=== PATIENT | female | born 1935 | race Caucasian/White ===

== ENCOUNTER → 2018-08-21 | Outpatient (CLI) | payer MEDICARE ==
[~2018-08-21] MED LIST: CALC1TAB76 PO; CELE200C PO; MAGN400C PO; MULT-717 PO
== END | disposition home or self-care (01) ==
LOC: CFH 12:20
PROVIDERS: ATTEND Family Medicine
DX: R92.1 Mammographic calcification found on diagnostic imaging of breast (principal)
CPT/HCPCS: 76642; 77066; G0279

== ENCOUNTER 2019-05-10 09:13 | Outpatient (CLI) | payer MEDICARE | END 2019-05-10 23:59 | disposition home or self-care (01) | LOC: CFH 09:13 | PROVIDERS: ATTEND Family Medicine | DX: M81.0 Age-related osteoporosis without current pathological fracture (principal); Z13.820 Encounter for screening for osteoporosis; M85.80 Other specified disorders of bone density and structure, unspecified site | CPT/HCPCS: 77080 ==

== ENCOUNTER 2019-09-16 09:49 | Emergency (ER) | payer MEDICARE ==
[~2019-09-16] VITALS: Ht 162.6 cm; Wt 63.4 kg
--- NOTE | 2019-09-16 10:01 | NUR ---
Present with palpitation/sob x 2 days. Newly diagnosed with afib- started on Metoprolol by Dr. Sawyer [address]r [address], 131/86 ecg obtained in triage
[2019-09-16] MEDS ORDERED: METO-282 PO (10:03)
--- NOTE | 2019-09-16 10:22 | NUR ---
Patient to room 31, attached to monitors, reports hx of heart palpitations worsening since yesterday and ARANA. O2 96% on RA. Reports edema to BLE non-pitting. Call light within reach, provider at bedside
[2019-09-16] MEDS ORDERED: ESTR0.5T PO (10:28)
[2019-09-16] MEDS ORDERED: NORT10CA PO (10:28)
[2019-09-16 10:43] LABS: BASOPHILS # (AUTO) 0.03 x10^3/uL (0-0.1); BASOPHILS % (AUTO) 0 % (0-1); EOSINOPHILS # (AUTO) 0.14 x10^3/uL (0-0.4); EOSINOPHILS % (AUTO) 2 % (1-7); LYMPHOCYTES # (AUTO) 1.57 x10^3/uL (1-3.4); LYMPHOCYTES % (AUTO) 22 % (22-44); MD NO; MEAN CORPUSCULAR HEMOGLOBIN 27.8 pg (27.0-34.8); MEAN CORPUSCULAR HGB CONC 32.3 g/dL (32.4-35.8); MEAN CORPUSCULAR VOLUME 86.2 fL (80-100); MEAN PLATELET VOLUME 7.7 fL (7.4-10.4); MONOCYTES # (AUTO) 0.57 x10^3/uL (0.2-0.8); MONOCYTES % (AUTO) 8 % (2-9); NEUTROPHILS # (AUTO) 4.76 x10^3/uL (1.8-6.8); NEUTROPHILS % (AUTO) 67 % (42-75); PLATELET COUNT 269 x10^3/uL (130-400); RED BLOOD COUNT 4.54 x10^6/uL (3.82-5.3); RED CELL DISTRIBUTION WIDTH 14.2 % (9.6-15.2)
--- NOTE | 2019-09-16 10:49 | NUR ---
Labs drawn, Portable CXR completed, and repeat EKG done. Provider aware. Patient resting on gurney NAD noted.
[2019-09-16 10:55] LABS: ALANINE AMINOTRANSFERASE 16 U/L (12-78); ALBUMIN 3.4 g/dL (3.4-5.0); ANION GAP 6 mmol/L (5-15); CALCIUM 9.4 mg/dL (8.5-10.1); CHLORIDE 108 mmol/L (98-107); CREATININE 0.77 mg/dL (0.55-1.02)
[2019-09-16 10:59] LABS: ALKALINE PHOSPHATASE 72 U/L (45-117); BILIRUBIN,TOTAL 0.5 mg/dL (0.2-1.0); TOTAL PROTEIN 6.9 g/dL (6.4-8.2); TROPONIN I < 0.015 ng/mL (0.000-0.045)
[2019-09-16 11:39] VITALS: BP 161/80
--- NOTE | 2019-09-16 11:39 | NUR ---
Ambulated with slow steady gait. Stand by assist and used a cane. Denies chest discomfort.
--- NOTE | 2019-09-16 12:23 | NUR ---
POC is to dischagre home and follow up with placer miner. Unhooked patient from monitors. Provider spoke with patient. pending discharge instructions
== END 2019-09-16 12:38 | disposition home or self-care (01) ==
LOC: ED 10:58
DX: R00.2 Palpitations (principal); R06.02 Shortness of breath; M79.89 Other specified soft tissue disorders; R94.31 Abnormal electrocardiogram [ECG] [EKG]
CPT/HCPCS: 36415; 71045; 80053; 83880; 84484; 85025; 93005; 99285

== ENCOUNTER 2019-10-18 14:03 | Outpatient (CLI) | payer MEDICARE ==
[~2019-10-18 14:03] MED LIST changes: +ESTR0.5T PO; +METO-282 PO; +NORT10CA PO
== END 2019-10-18 23:59 | disposition home or self-care (01) ==
LOC: CFH 14:03
PROVIDERS: ATTEND Family Medicine
DX: M79.605 Pain in left leg (principal); M25.562 Pain in left knee; M71.22 Synovial cyst of popliteal space [Baker], left knee

== ENCOUNTER → 2019-10-29 | Outpatient (CLI) | payer MEDICARE | END | disposition home or self-care (01) | LOC: RAD 12:11 | PROVIDERS: ATTEND Family Medicine | DX: Z01.818 Encounter for other preprocedural examination (principal); Z01.810 Encounter for preprocedural cardiovascular examination; I44.4 Left anterior fascicular block; I45.10 Unspecified right bundle-branch block | CPT/HCPCS: 71046; 93005 ==

== ENCOUNTER → 2019-11-03 | Outpatient (CLI) | payer MEDICARE | END | disposition home or self-care (01) | LOC: CVU 12:38 | PROVIDERS: ATTEND Family Medicine | DX: I83.91 Asymptomatic varicose veins of right lower extremity (principal); I73.9 Peripheral vascular disease, unspecified | CPT/HCPCS: 93922; 93970 ==

== ENCOUNTER → 2019-11-17 | Outpatient (CLI) | payer MEDICARE ==
[~2019-11-17] MED LIST changes: +ACET-1600 PO; +DIPH25CA61 PO; +PANT500T PO; +TRAM50TA2 PO
[2019-11-17 14:19] LABS: BASOPHILS # (AUTO) 0.04 x10^3/uL (0-0.1); BASOPHILS % (AUTO) 1 % (0-1); EOSINOPHILS # (AUTO) 0.12 x10^3/uL (0-0.4); EOSINOPHILS % (AUTO) 2 % (1-7); LYMPHOCYTES # (AUTO) 1.56 x10^3/uL (1-3.4); LYMPHOCYTES % (AUTO) 28 % (22-44); MD NO; MEAN CORPUSCULAR HEMOGLOBIN 27.7 pg (27.0-34.8); MEAN CORPUSCULAR HGB CONC 32.7 g/dL (32.4-35.8); MEAN CORPUSCULAR VOLUME 84.8 fL (80-100); MEAN PLATELET VOLUME 8.1 fL (7.4-10.4); MONOCYTES # (AUTO) 0.47 x10^3/uL (0.2-0.8); MONOCYTES % (AUTO) 8 % (2-9); NEUTROPHILS # (AUTO) 3.49 x10^3/uL (1.8-6.8); NEUTROPHILS % (AUTO) 61 % (42-75); PLATELET COUNT 275 x10^3/uL (130-400); RED BLOOD COUNT 4.45 x10^6/uL (3.82-5.3); RED CELL DISTRIBUTION WIDTH 14.7 % (9.6-15.2)
[2019-11-17 14:26] LABS: ANION GAP 5 mmol/L (5-15); CALCIUM 9.4 mg/dL (8.5-10.1); CHLORIDE 111 mmol/L (98-107); CREATININE 0.86 mg/dL (0.55-1.02); INTERNATIONAL NORMALIZED RATIO 0.98 (0.93-1.1); PROTHROMBIN TIME 10.4 Seconds (9.6-11.5)
== END | disposition home or self-care (01) ==
LOC: STAR 13:13
PROVIDERS: ATTEND Orthopaedic Surgery
DX: Z01.818 Encounter for other preprocedural examination (principal); M17.12 Unilateral primary osteoarthritis, left knee
CPT/HCPCS: 36415; 80048; 83036; 85025; 85610; 85730; 87081

== ENCOUNTER 2019-12-01 07:54 | Observation (INO) | payer MEDICARE ==
[~2019-12-01] VITALS: Ht 165.1 cm; Wt 67.0 kg
[~2019-12-01 07:54] MED LIST changes: +ACETAMINOPHEN 650 MG/20.3 ML UDC PO PRN; +BISACODYL 10 MG SUPP PR PRN; +DIPHENHYDRAMINE 50 MG CAPSULE PO PRN; +EPINEPHRINE 1 MG/ML, 1ML ONE; +HYDROcodone/APAP 5/325 TABLET PO PRN; +HYDROmorphone 1 MG/ML, 1ML INJ IV PRN; +KETOROLAC 60 MG/2 ML ONE; +MAGNESIUM HYDROXIDE 8%, 30ML UDC PO PRN; +NORTRIPTYLINE 10 MG CAPSULE PO PRN; +ONDANSETRON 2MG/ML, 2ML IV PRN; +ONDANSETRON 4 MG TABLET PO PRN; +ROPIvacaine/PF 0.5%, 20 ML ONE; +ROPIvacaine/PF 0.5%, 30 ML ONE; +SENNA/DOCUSATE TABLET PO PRN; +SODIUM CHLORIDE 0.9% 50 ML ONE; +TRANEXAMIC ACID 100 MG/ML, 10ML ONE; +VANCOMYCIN 1,000 MG ONE; +ZOLPIDEM 5MG TABLET PO PRN
[2019-12-01] MEDS ORDERED: LACTATED RINGERS 1,000 ML IV SCH (08:27)
[2019-12-01 08:28] VITALS: BP 171/93
[2019-12-01] MEDS ORDERED: GABAPENTIN 300 MG CAPSULE PO ONE (08:30)
[2019-12-01] MEDS ORDERED: ACETAMINOPHEN 500 MG TABLET PO ONE (08:30)
[2019-12-01] MEDS ORDERED: CHLORHEXIDINE 15 ML UDC MM ONE (08:30)
[2019-12-01] MEDS ORDERED: FENTANYL PF 250 MCG/5ML ONE (08:49)
[2019-12-01] MEDS ORDERED: PROPOFOL 10 MG/ML, 20ML ONE ×2 (08:50→08:57)
[2019-12-01] MEDS ORDERED: CEFAZOLIN 1,000 MG ONE ×2 (08:51)
[2019-12-01] MEDS ORDERED: ROCURONIUM 10MG/ML,5ML ONE (08:57)
[2019-12-01] MEDS ORDERED: ONDANSETRON 2MG/ML, 2ML IVPush PRN (09:00)
[2019-12-01] MEDS ORDERED: hydrALAzine 20 MG/ML, 1ML IV PRN (09:00)
[2019-12-01] MEDS ORDERED: OXYcodone 5 MG/5 ML ORAL.SOL UDC PO PRN (09:00)
[2019-12-01] MEDS ORDERED: LABETALOL 5MG/ML, 20ML IV PRN (09:00)
[2019-12-01] MEDS ORDERED: MEPERIDINE/PF 25MG/0.5ML IVPush PRN (09:00)
[2019-12-01] MEDS ORDERED: NEOSTIGMINE 1 MG/ML, 10ML ONE (09:52)
[2019-12-01] MEDS ORDERED: GLYCOPYRROLATE 0.2MG/1ML, 5ML ONE (09:52)
[2019-12-01] MEDS ORDERED: ONDANSETRON 2MG/ML, 2ML ONE (09:52)
[2019-12-01] MEDS ORDERED: PROPOFOL 50 ML ONE (10:02)
[2019-12-01] MEDS ORDERED: OXYcodone 5 MG/5 ML ORAL.SOL UDC ONE (11:14)
[2019-12-01] MEDS ORDERED: FENTANYL PF 100 MCG/2ML ONE ×2 (11:14→11:55)
[2019-12-01] MEDS: FENTANYL PF 100 MCG/2ML IV PRN ×3 (11:15→11:55)
[2019-12-01] MEDS ORDERED: HYDROmorphone 1 MG/ML, 1ML INJ ONE (11:39)
[2019-12-01] MEDS: HYDROmorphone 1 MG/ML, 1ML INJ IVPush PRN ×2 (11:40→11:49)
[2019-12-01 12:40] VITALS: BP 123/64
[2019-12-01] MEDS: METOPROLOL SUCCINATE 25 MG TAB.ER.24H PO SCH (13:00)
[2019-12-01 13:55] VITALS: BP 102/57
[2019-12-01] MEDS: ASPIRIN 81 MG TABLET EC PO SCH (17:15)
[2019-12-01] MEDS: CEFAZOLIN PMX 2GM/50ML 50 ML IVPB SCH (17:15)
[2019-12-01] MEDS: NS + 20MEQ KCL 1,000 ML IV SCH (17:15)
[2019-12-01] MEDS: DOCUSATE 100 MG CAPSULE PO SCH ×2 (17:23→21:44)
[2019-12-01] MEDS: OXYcodone IR 5MG TABLET PO PRN (18:12)
[2019-12-01 19:04] VITALS: BP 109/62
[2019-12-01] MEDS: NORTRIPTYLINE 10 MG CAPSULE PO SCH (21:44)
[2019-12-02 00:13] VITALS: BP 125/72
[2019-12-02] MEDS: CEFAZOLIN PMX 2GM/50ML 50 ML IVPB SCH (00:38)
[2019-12-02 03:45] VITALS: BP 147/69
[2019-12-02] MEDS: NS + 20MEQ KCL 1,000 ML IV SCH ×2 (03:53→20:08)
[2019-12-02] MEDS ORDERED: DEXAMETHASONE 4 MG/ML, 1ML IVPush SCH (06:00)
[2019-12-02] MEDS: ASPIRIN 81 MG TABLET EC PO SCH ×2 (06:24→18:15)
[2019-12-02] MEDS ORDERED: TAMSULOSIN 0.4 MG CAP.ER.24H PO ONE ×2 (07:00→20:00)
[2019-12-02 07:19] VITALS: BP 116/58
[2019-12-02] MEDS: DOCUSATE 100 MG CAPSULE PO SCH ×2 (09:30→20:08)
[2019-12-02] MEDS: METOPROLOL SUCCINATE 25 MG TAB.ER.24H PO SCH (09:30)
[2019-12-02] MEDS: OXYcodone IR 5MG TABLET PO PRN ×2 (12:50→23:57)
[2019-12-02 15:02] VITALS: BP 132/61
[2019-12-02 18:34] VITALS: BP 118/61
[2019-12-02] MEDS: NORTRIPTYLINE 10 MG CAPSULE PO SCH (20:08)
[2019-12-03 00:02] VITALS: BP 129/71
[2019-12-03] MEDS: ASPIRIN 81 MG TABLET EC PO SCH (05:50)
[2019-12-03] MEDS: OXYcodone IR 5MG TABLET PO PRN ×2 (05:50→11:08)
[2019-12-03 08:22] VITALS: BP 107/58
[2019-12-03] MEDS: METOPROLOL SUCCINATE 25 MG TAB.ER.24H PO SCH (08:29)
[2019-12-03] MEDS: DOCUSATE 100 MG CAPSULE PO SCH (08:30)
[2019-12-03] MEDS ORDERED: ASPI81TA45 PO (08:32)
[2019-12-03] MEDS ORDERED: HYDR-3240 PO (08:34)
[2019-12-03] MEDS ORDERED: TRAM50TA2 PO (08:35)
[2019-12-03] MEDS ORDERED: ONDA4TAB7 PO (08:35)
== END 2019-12-03 11:18 | disposition home or self-care (01) ==
LOC: OUT 07:54 → INTOOBSV 12:38 → 4NW 12:38 → DCLOUNGE 12-03 11:12
PROVIDERS: ADMIT Orthopaedic Surgery; ATTEND Orthopaedic Surgery
DX: Z03.818 Encounter for observation for suspected exposure to other biological agents ruled out (principal); M17.12 Unilateral primary osteoarthritis, left knee; M81.0 Age-related osteoporosis without current pathological fracture; I10 Essential (primary) hypertension; G89.29 Other chronic pain; H40.9 Unspecified glaucoma; Z88.0 Allergy status to penicillin; Z79.899 Other long term (current) drug therapy
CPT/HCPCS: 27447; 36415; 85014; 85018; 87635; 96365; 96366; 96375; 97110; 97116; 97161; 97165; 97530; C1713; C1776; G0378; J0171; J0690; J1100; J1170; J1885; J2405; J2704; J2710; J2795; J3010; J3370; J3480; J7120

== ENCOUNTER 2020-02-14 12:14 | Observation (INO) | payer MEDICARE ==
[~2020-02-14] VITALS: Ht 165.1 cm; Wt 61.2 kg
[~2020-02-14 12:14] MED LIST changes: -ACETAMINOPHEN 650 MG/20.3 ML UDC PO PRN; +ASPI81TA45 PO; -BISACODYL 10 MG SUPP PR PRN; -DIPHENHYDRAMINE 50 MG CAPSULE PO PRN; -EPINEPHRINE 1 MG/ML, 1ML ONE; +HYDR-3240 PO; -HYDROcodone/APAP 5/325 TABLET PO PRN; -HYDROmorphone 1 MG/ML, 1ML INJ IV PRN; -KETOROLAC 60 MG/2 ML ONE; -MAGNESIUM HYDROXIDE 8%, 30ML UDC PO PRN; -NORTRIPTYLINE 10 MG CAPSULE PO PRN; +ONDA4TAB7 PO; -ONDANSETRON 2MG/ML, 2ML IV PRN; -ONDANSETRON 4 MG TABLET PO PRN; -ROPIvacaine/PF 0.5%, 20 ML ONE; -ROPIvacaine/PF 0.5%, 30 ML ONE; -SENNA/DOCUSATE TABLET PO PRN; -SODIUM CHLORIDE 0.9% 50 ML ONE; -TRANEXAMIC ACID 100 MG/ML, 10ML ONE; -VANCOMYCIN 1,000 MG ONE; -ZOLPIDEM 5MG TABLET PO PRN
[2020-02-14 12:59] LABS: BASOPHILS % (AUTO) 1 % (0-1); EOSINOPHILS % (AUTO) 1 % (1-7); LYMPHOCYTES % (AUTO) 24 % (22-44); MEAN CORPUSCULAR HEMOGLOBIN 26.8 pg (27.0-34.8); MEAN CORPUSCULAR HGB CONC 32.1 g/dL (32.4-35.8); MEAN PLATELET VOLUME 7.9 fL (7.4-10.4); MONOCYTES % (AUTO) 8 % (2-9); NEUTROPHILS % (AUTO) 66 % (42-75); PLATELET COUNT 306 x10^3/uL (130-400); RED BLOOD COUNT 4.65 x10^6/uL (3.82-5.3); RED CELL DISTRIBUTION WIDTH 14.1 % (9.6-15.2)
[2020-02-14 13:01] LABS: MD NO
[2020-02-14 13:07] LABS: ALANINE AMINOTRANSFERASE 17 U/L (12-78); ALBUMIN 3.7 g/dL (3.4-5.0); ANION GAP 4 mmol/L (5-15); CALCIUM 9.5 mg/dL (8.5-10.1); CHLORIDE 105 mmol/L (98-107); CREATININE 0.79 mg/dL (0.55-1.02)
[2020-02-14 13:11] LABS: ALKALINE PHOSPHATASE 84 U/L (45-117); BILIRUBIN,TOTAL 0.5 mg/dL (0.2-1.0); TROPONIN I < 0.015 ng/mL (0.000-0.045)
--- NOTE | 2020-02-14 13:18 | NUR ---
PT C/O SOB WITH EXERTION AND GENERAL WEAKNESS. PT HAS HAD PERIODS OF SOB SINCE 2014. PT STATES IT IS GETTING WORSE AND ONLY TAKES MINIMAL EXERTION TO CAUSE SOB. PT DENIES CHEST PAIN OR SOB AT THIS TIME.
--- NOTE | 2020-02-14 14:36 | NUR ---
OFF THE FLOOR TO CT
--- NOTE | 2020-02-14 14:49 | NUR ---
BREAK RN: PT BACK FROM CT, PT VERBALIZED NO NEEDS AT THIS TIME. CALL LIGHT WITHIN REACH.
--- NOTE | 2020-02-14 15:04 | NUR ---
BREAK RN: REPORT TO GAEL MILIAN, PLAN OF CARE DISCUSSED
[2020-02-14] MEDS ORDERED: OMNIPAQUE 350 MG/ML, 75ML BOTTLE ONE (15:33)
[2020-02-14 15:35] VITALS: BP 162/71
[2020-02-14] MEDS ORDERED: DIPHENHYDRAMINE 25 MG CAPSULE PO PRN (16:00)
[2020-02-14] MEDS: CEFTRIAXONE PMX 2GM/50ML 50 ML IVPB SCH (16:20)
[2020-02-14] MEDS ORDERED: ACETAMINOPHEN 325 MG TABLET PO PRN (19:00)
[2020-02-14] MEDS ORDERED: ONDANSETRON 2MG/ML, 2ML IVPush PRN (19:00)
[2020-02-14] MEDS ORDERED: MELATONIN 5 MG TABLET PO PRN (19:00)
[2020-02-14] MEDS ORDERED: ENOXAPARIN 40 MG/0.4 ML SQ SCH (19:00)
[2020-02-14] MEDS ORDERED: POLYETHYLENE GLYCOL 17 GM PACKET PO PRN (19:00)
[2020-02-14 20:50] VITALS: BP 129/72
[2020-02-14] MEDS ORDERED: NORTRIPTYLINE 10 MG CAPSULE PO SCH (21:00)
[2020-02-14] MEDS: GUAIFENESIN ER 600 MG TABLET PO SCH (21:42)
[2020-02-14] MEDS: MAGNESIUM OXIDE 400 MG TABLET PO SCH (21:42)
[2020-02-14] MEDS: DOXYCYCLINE 100MG TABLET PO SCH (21:42)
[2020-02-14] MEDS: ASPIRIN 81 MG TABLET EC PO SCH (21:42)
[2020-02-15 00:28] VITALS: BP 133/59
[2020-02-15 06:39] LABS: TROPONIN I < 0.015 ng/mL (0.000-0.045)
[2020-02-15] MEDS ORDERED: MULTIVITAMINS/MINERALS TABLET PO SCH (07:00)
[2020-02-15 07:16] VITALS: BP 136/74
[2020-02-15] MEDS ORDERED: ESTRADIOL 0.5 MG TABLET PO SCH (09:00)
[2020-02-15] MEDS ORDERED: METOPROLOL SUCCINATE 25 MG TAB.ER.24H PO SCH (09:00)
[2020-02-15] MEDS ORDERED: REGADENOSON 0.4 MG/5 ML SYRINGE ONE (09:30)
[2020-02-15] MEDS: ASPIRIN 81 MG TABLET EC PO SCH (09:50)
[2020-02-15] MEDS: MAGNESIUM OXIDE 400 MG TABLET PO SCH (09:50)
[2020-02-15] MEDS: GUAIFENESIN ER 600 MG TABLET PO SCH (09:50)
[2020-02-15] MEDS: DOXYCYCLINE 100MG TABLET PO SCH (09:51)
[2020-02-15 12:58] VITALS: BP 156/79
[2020-02-15] MEDS ORDERED: CALCIUM/VITAMIN D3 250-125 TABLET PO SCH (16:00)
[2020-02-15] MEDS ORDERED: AZIT250T89 PO (16:02)
[2020-02-15] MEDS ORDERED: LEVA15HF4 INH (16:12)
[2020-02-15] MEDS: CEFTRIAXONE PMX 2GM/50ML 50 ML IVPB SCH (16:17)
== END 2020-02-15 17:31 | disposition home or self-care (01) ==
LOC: ED 13:33 → SUATTDRO 13:33 → INTOOBSV 13:56 → 5SO 13:56
PROVIDERS: ADMIT Internal Medicine; ATTEND Internal Medicine
DX: R00.2 Palpitations (principal); R06.00 Dyspnea, unspecified; I20.9 Angina pectoris, unspecified; Z88.0 Allergy status to penicillin; Z79.899 Other long term (current) drug therapy; Z79.82 Long term (current) use of aspirin; Z90.710 Acquired absence of both cervix and uterus
CPT/HCPCS: 36415; 71045; 71275; 78452; 80053; 83880; 84145; 84484; 85025; 85379; 86850; 86900; 87040; 93005; 93017; 93306; 96365; 96372; 99285; A9502; G0378; J0696; J1650; J2785; Q9967

== ENCOUNTER 2020-08-16 11:11 | Emergency (ER) | payer MEDICARE ==
[~2020-08-16] VITALS: Ht 165.1 cm; Wt 55.0 kg
[~2020-08-16 11:11] MED LIST changes: +ASPI325T20 PO; +AZIT250T89 PO; +FERR325T5 PO; +HYDR-1067 PO; -HYDR-3240 PO; +LEVA15HF4 INH
--- NOTE | 2020-08-16 11:26 | NUR ---
pt woke up with morning with palpitations and sob. called ems was found to be in svt. pt has history of heart arrythmias in past. pt given 6 of adenosine and 1,250 ml of ns and converted to sinus a few minutes after medication administration. pt attached to all monitors. vss. nadn. ekg preformed. awaiting orders
--- NOTE | 2020-08-16 11:45 | NUR ---
dr. johnson to bedside for evaluation
--- NOTE | 2020-08-16 11:50 | NUR ---
pt to bathroom with assitance of daughter. pt uses cane at home for ambulation
[2020-08-16 12:04] LABS: BASOPHILS % (AUTO) 1 % (0-1); EOSINOPHILS % (AUTO) 2 % (1-7); LYMPHOCYTES % (AUTO) 28 % (22-44); MEAN CORPUSCULAR HEMOGLOBIN 27.7 pg (27.0-34.8); MEAN CORPUSCULAR HGB CONC 32.7 g/dL (32.4-35.8); MEAN PLATELET VOLUME 8.1 fL (7.4-10.4); MONOCYTES % (AUTO) 9 % (2-9); NEUTROPHILS % (AUTO) 61 % (42-75); PLATELET COUNT 261 x10^3/uL (130-400); RED BLOOD COUNT 4.75 x10^6/uL (3.82-5.3); RED CELL DISTRIBUTION WIDTH 14.5 % (9.6-15.2)
[2020-08-16 12:07] LABS: MD NO
[2020-08-16 12:16] LABS: ALANINE AMINOTRANSFERASE 19 U/L (12-78); ALBUMIN 3.8 g/dL (3.4-5.0); ANION GAP 6 mmol/L (5-15); CALCIUM 9.3 mg/dL (8.5-10.1); CHLORIDE 110 mmol/L (98-107); CREATININE 0.76 mg/dL (0.55-1.02)
[2020-08-16 12:20] LABS: ALKALINE PHOSPHATASE 98 U/L (45-117); BILIRUBIN,TOTAL 0.4 mg/dL (0.2-1.0); TOTAL PROTEIN 7.1 g/dL (6.4-8.2); TROPONIN I 0.015 ng/mL (0.000-0.045)
[2020-08-16 13:03] VITALS: BP 130/79
--- NOTE | 2020-08-16 13:17 | NUR ---
Patient/Caregiver given discharge instructions and they have confirmed that they understand the instructions. Patient ambulatory with steady gait.
== END 2020-08-16 13:18 | disposition home or self-care (01) ==
LOC: ED 12:40
DX: I47.1 Supraventricular tachycardia (principal); I49.9 Cardiac arrhythmia, unspecified; R07.2 Precordial pain; I48.91 Unspecified atrial fibrillation; I10 Essential (primary) hypertension
CPT/HCPCS: 36415; 71045; 80053; 84443; 84484; 85025; 93005; 99285

== ENCOUNTER → 2020-12-21 | Outpatient (CLI) | payer MEDICARE ==
[~2020-12-21] MED LIST changes: +FLUO10CA13 PO; -HYDR-1067 PO; +HYDR-2214 PO; +LIDO700A20 TD; +METH4TAB2 PO
== END | disposition home or self-care (01) ==
LOC: RAD 11:58
PROVIDERS: ATTEND Orthopaedic Surgery
DX: S32.502A Unspecified fracture of left pubis, initial encounter for closed fracture (principal); S72.22XD Displaced subtrochanteric fracture of left femur, subsequent encounter for closed fracture with routine healing; M25.752 Osteophyte, left hip; M11.252 Other chondrocalcinosis, left hip; M81.0 Age-related osteoporosis without current pathological fracture; M51.36 Other intervertebral disc degeneration, lumbar region; X58.XXXA Exposure to other specified factors, initial encounter; Y93.89 Activity, other specified; Y92.89 Other specified places as the place of occurrence of the external cause; Y99.8 Other external cause status